=== PATIENT | female | born 1960 | race Caucasian/White ===

== ENCOUNTER 2022-11-10 16:34 | Emergency (ER) | payer BC, SELFPAY ==
[2022-11-10 16:37] VITALS: BP 175/68; PULSE 82; RESP 18; TEMP 36.3; O2SAT 97; BMI 31.9
--- NOTE | 2022-11-10 16:54 | CRLHL7_ITS ---
For Patients: As a result of the Cures Act, medical imaging exams and procedure reports are released immediately into your electronic medical record. You may view this report before your referring provider. If you have questions, please contact your health care provider. INDICATION: Right calf pain and swelling. TECHNIQUE: Ultrasound venous duplex lower right extremity. Compression venous exam was performed using mcgowan-scale, color Doppler, and spectral Doppler imaging. COMPARISON: No prior. FINDINGS: Sonographic imaging demonstrates the right common femoral, deep femoral, superficial femoral, popliteal, posterior tibial and greater saphenous and the contralateral left common femoral veins to be fully compressible with normal color Doppler blood flow. IMPRESSION: No DVT within the right lower extremity. Dictated by Zac Monzon MD @ 11/10/2022 6:39:35 PM Dictated by: Zac Monzon MD @ 11/10/2022 18:39:41 (Electronically Signed)
[2022-11-10 17:10] LABS: Basophils Absolute Auto 0.03 K/uL (0.00-0.30); Basophils Percent Auto 0.5 % (0.0-3.0); Eosinophils Absolute Auto 0.21 K/uL (0.00-0.50); Eosinophils Percent Auto 3.7 % (0.0-7.0); Hematocrit 40.8 % (33.0-51.0); Hemoglobin* 12.7 gm/dL (12.0-16.0); Lymphocytes Percent Auto 33.6 % (20-44); Mean Corpuscular HGB Conc 31 gm/dL (32-36); Mean Corpuscular Hemoglobin 29 pg (26-34); Mean Corpuscular Volume 92 fL (80-100); Monocytes Percent Auto 7.6 % (0.0-11.0); Neutrophils Absolute Auto 3.09 K/uL (1.7-7.0); Neutrophils Percent Auto 54.6 % (42.0-72.0); Platelet Count* 232 K/uL (140-440); RDW Coefficient of Variation % 17.1 % (11.5-15.5); Red Blood Count 4.46 m/uL (4.00-5.20); White Blood Count* 5.66 K/uL (4.50-11.00)
[2022-11-10 17:13] LABS: Slide Review Reflex No
[2022-11-10 17:26] LABS: Albumin* 4.2 g/dL (3.3-5.0)
[2022-11-10 17:27] LABS: Chloride* 108 mmol/L (96-114); Potassium* 4.6 mmol/L (3.6-5.1); Sodium* 143 mmol/L (135-149)
[2022-11-10 17:29] LABS: Alanine Aminotransferase* 19 U/L (4-35); Alkaline Phosphatase* 108 U/L (40-150); Aspartate Amino Transferase* 23 U/L (12-35); Bilirubin Total* 0.4 mg/dL (0.1-1.5); Creatinine* 0.7 mg/dL (0.5-1.5); D Dimer Quantitative* 0.34 ug/ml (0.00-0.50); Estimated Glomerular Filt Rate 98 ml/min; Total Protein* 7.5 g/dL (6.0-8.3)
[2022-11-10 17:30] LABS: Anion Gap 5 mEq/L (7-15); Blood Urea Nitrogen* 18 mg/dL (7-30); Calcium* 9.9 mg/dL (8.4-10.6); Carbon Dioxide* 30 mmol/L (20-32); Glucose* 91 mg/dL (60-115)
[2022-11-10 17:32] LABS: C Reactive Protein* 0.8 mg/dL (0.5-1.0)
--- NOTE | 2022-11-10 18:11 | CRLHL7_ITS ---
For Patients: As a result of the Cures Act, medical imaging exams and procedure reports are released immediately into your electronic medical record. You may view this report before your referring provider. If you have questions, please contact your health care provider. INDICATION: Right lower extremity edema.. TECHNIQUE: CT abdomen and pelvis acquired with 99 cc Isovue 370 IV contrast. COMPARISON: None. FINDINGS: Lower chest: Unremarkable. Liver: Unremarkable. Normal in size and attenuation. No suspicious masses. Gallbladder and bile ducts: Status post cholecystectomy. Mild intra and extrahepatic biliary ductal dilatation likely reservoir effect. Pancreas: Unremarkable. No mass or inflammation. Spleen: Unremarkable. Normal in size. No masses. Adrenal glands: Indeterminate enhancing nodular lesion in the left adrenal gland measuring 15 millimeters in diameter (). Kidneys: Unremarkable. No suspicious masses, stones, or hydronephrosis. GI tract: No bowel obstruction. Status post gastric bypass. Appendix is not visualized. Vasculature: Abdominal aorta is normal in caliber. Mesenteric arteries are patent. No evidence to suggest DVT. Lymph nodes: No lymphadenopathy. Peritoneum/Abdominal Wall: Unremarkable. No sign of mass or infiltration. No free air or significant free fluid. Pelvis: Unremarkable. Bones: Lumbar fusion changes are noted. No evidence of hardware fracture or loosening. Multilevel degenerative changes in the lumbar spine. IMPRESSION: No acute intra-abdominal process identified. Please note that all CT scans at this facility use dose modulation, iterative reconstruction, and/or weight-based dosing when appropriate to reduce radiation dose to as low as reasonably achievable. Dictated by Giovanna Holder MD @ 11/10/2022 7:34:47 PM (Electronically Signed)
--- NOTE | 2022-11-10 19:00 | ED.GENADULT ---
HPI - General Adult General Chief complaint: Extremity Pain/Injury, Lower Stated complaint: Possible blood clot Time Seen by Provider: 11/10/22 16:47 Source: patient Mode of arrival: ambulatory Limitations: no limitations History of Present Illness HPI narrative: 62-year-old female coming in today complaining of right lower extremity swelling. States feels like that for about 2 weeks. She denies tenderness. She denies any systemic symptoms like fevers, chills, nausea or vomiting. No changes in her appetite. She denies any weight changes or her clothes fitting differently. No changes in her sleep. She denies any night sweats. She denies any recent traveling or changes in her medications. She does smoke. She denies any hormonal therapy. She denies any family history of blood clots or any personal history of blood clots. Related Data Home Medications Medication Instructions Recorded Confirmed amlodipine 10 mg tablet 10 mg PO DAILY 11/10/22 11/10/22 atorvastatin 40 mg tablet 40 mg PO QPM 11/10/22 11/10/22 cyanocobalamin (vitamin B-12) 1,000 mcg PO DAILY 11/10/22 11/10/22 1,000 mcg tablet ergocalciferol (vitamin D2) 1,250 1,250 mcg PO 2XW 11/10/22 11/10/22 mcg (50,000 unit) capsule gabapentin 300 mg capsule 300 mg PO BID 11/10/22 11/10/22 levothyroxine 200 mcg tablet 200 mcg PO QAM 11/10/22 11/10/22 paroxetine HCl 40 mg tablet 40 mg PO DAILY 11/10/22 11/10/22 Allergies Allergy/AdvReac Type Severity Reaction Status Date / Time varenicline [From Chantix] Allergy Verified 11/10/22 18:37 Review of Systems Status of ROS: Reports: 10 or more systems reviewed and unremarkable except as noted in History and below [facility] PFS Social History Smoking Status: Unknown if ever smoked Do you use any of these nicotine containing products: None Second hand tobacco smoke exposure: No How often do you have a drink containing alcohol: never How often do you have six or more drinks on one occasion: Never AUDIT-C Alcohol total score: 0 Non-prescribed substance use: denies use service: No Exam Narrative: Exam Narrative: Well-nourished well-developed patient in no acute distress. Alert and oriented. Answers questions appropriately. Mood and affect are appropriate. Thoughts are goal oriented and rational. No tangential or magical thinking noted. Patient speaks in full sentences without needing to catch her breath. HEENT: Normocephalic atraumatic. Pupils are equally round reactive to light. Extraocular muscles are intact. Conjunctivae are moist without any icterus noted. Moist mucous membranes. Cardiovascular: Heart is regular rate and rhythm. Lungs: Clear to auscultation bilaterally no wheezes rhonchi or rales are appreciated. Patient takes deep breaths without any discomfort. Abdomen: Soft and nontender nondistended with normal bowel sounds. Extremities: Left lower extremity appears normal. Right lower extremity is 2+ pitting edema from the foot all the way up to the mid hughes. Skin is firm and tight. Skin: Well perfused without any obvious rashes. Const: Vital Signs, click to edit/add: Vital Signs - 24 hr 11/10/22 16:37 Temperature 97.4 F L Pulse Rate [Right Pulse Oximeter] 82 Respiratory Rate 18 Blood Pressure [Ri ght Upper Arm] 175/68 H Pulse Oximetry 97 Oxygen Delivery Me thod Room Air Course Course ED Course: Lab work was unremarkable. Lower extremity ultrasound did not show any evidence of DVT. Given the amount of swelling she is having that leg I did proceed with an abdomen and pelvis CT to rule out any masses or obstructing lesions-this was unremarkable also. Vital Signs Vital signs: Initial Vital Signs Temperature 97.4 F L 11/10/22 16:37 Temperature Source Temporal Artery Scan 11/10/22 16:37 Pulse Rate 82 11/10/22 16:37 Respiratory Rate 18 11/10/22 16:37 Blood Pressure 175/68 H 11/10/22 16:37 Blood Pressure Mean 103 11/10/22 16:37 Blood Pressure Position Sitting 11/10/22 16:37 Pulse Oximetry 97 11/10/22 16:37 Oxygen Delivery Method Room Air 11/10/22 16:37 Vital Signs Temperature 97.4 F L 11/10/22 16:37 Pulse Rate 82 11/10/22 16:37 Respiratory Rate 18 11/10/22 16:37 Blood Pressure 175/68 H 11/10/22 16:37 Pulse Oximetry 97 11/10/22 16:37 Oxygen Delivery Method Room Air 11/10/22 16:37 Temperature 97.4 F L 11/10/22 16:37 Pulse Rate 82 11/10/22 16:37 Respiratory Rate 18 11/10/22 16:37 Blood Pressure 175/68 H 11/10/22 16:37 Pulse Oximetry 97 11/10/22 16:37 Oxygen Delivery Method Room Air 11/10/22 16:37 Medical Decision Making MDM Narrative Medical decision making narrative: 62-year-old female with unilateral lower extremity swelling who unclear etiology. At this time we discussed compression stocking elevating legs much possible. I recommend she follow up with primary care provider to discuss next steps in treatment. Patient was in agreement and had no other questions. Lab Data Lab results reviewed: Yes I reviewed the patient's lab results Labs: Lab Results 11/10/22 Range/Units 17:02 WBC 5.66 (4.50-11.00) K/uL RBC 4.46 (4.00-5.20) m/uL Hgb 12.7 (12.0-16.0) gm/dL Hct 40.8 (33.0-51.0) % MCV 92 (80-100) fL MCH 29 (26-34) pg MCHC 31 L (32-36) gm/dL RDW Coeff of Rose Mary 17.1 H (11.5-15.5) % Plt Count 232 (140-440) K/uL Neut % (Auto) 54.6 (42.0-72.0) % Lymph % (Auto) 33.6 (20-44) % Gentry % (Auto) 7.6 (0.0-11.0) % Eos % (Auto) 3.7 (0.0-7.0) % Baso % (Auto) 0.5 (0.0-3.0) % Neut # (Auto) 3.09 (1.7-7.0) K/uL Lymph # (Auto) 1.90 (0.90-2.90) K/uL Gentry # (Auto) 0.40 (0.00-0.90) K/UL Eos # (Auto) 0.21 (0.00-0.50) K/uL Baso # (Auto) 0.03 (0.00-0.30) K/uL Abs Immat Gran (auto) 0.00 (0.00-0.30) K/uL Imm/Tot Granulo (auto) 0.0 % D-Dimer Quant (PE/DVT) 0.34 (0.00-0.50) ug/ml Sodium 143 (135-149) mmol/L Potassium 4.6 (3.6-5.1) mmol/L Chloride 108 (96-114) mmol/L Carbon Dioxide 30 (20-32) mmol/L Anion Gap 5 L (7-15) mEq/L BUN 18 (7-30) mg/dL Creatinine 0.7 (0.5-1.5) mg/dL Estimated Creat Clear 59.60 Estimated GFR 98 ml/min Glucose 91 (60-115) mg/dL Calcium 9.9 (8.4-10.6) mg/dL Total Bilirubin 0.4 (0.1-1.5) mg/dL Direct Bilirubin 0.0 (0.0-0.5) mg/dL AST 23 (12-35) U/L ALT 19 (4-35) U/L Alkaline Phosphatase 108 (40-150) U/L C-Reactive Protein 0.8 (0.5-1.0) mg/dL Total Protein 7.5 (6.0-8.3) g/dL Albumin 4.2 (3.3-5.0) g/dL Imaging Data Venous US: Attestation: I have reviewed the pertinent imaging results. Radiologist's impression: [place] [id number] Diagnostic Imaging Report Patient: Shelley Carpenter MR#: [id number] : 1960 Acct:[id number] Loc: ED Service Date: 11/10/[address]: Ordering Physician: Corie Taylor M.D. Date of Service: 11/10/22 Procedure(s): US venous LE RT Accession Number(s): [id number] cc: Charline Jones M.D.; Corie Taylor M.D.~ For Patients: As a result of the Cures Act, medical imaging exams and procedure reports are released immediately into your electronic medical record. You may view this report before your referring provider. If you have questions, please contact your health care provider. INDICATION: Right calf pain and swelling. TECHNIQUE: Ultrasound venous duplex lower right extremity. Compression venous exam was performed using mcgowan-scale, color Doppler, and spectral Doppler imaging. COMPARISON: No prior. FINDINGS: Sonographic imaging demonstrates the right common femoral, deep femoral, superficial femoral, popliteal, posterior tibial and greater saphenous and the contralateral left common femoral veins to be fully compressible with normal color Doppler blood flow. IMPRESSION: No DVT within the right lower extremity. CT scan - abdomen: Attestation: I have reviewed the pertinent imaging results. Radiologist's impression: CT abdomen and pelvis acquired with 99 cc Isovue 370 IV contrast. COMPARISON: None. FINDINGS: Lower chest: Unremarkable. Liver: Unremarkable. Normal in size and attenuation. No suspicious masses. Gallbladder and bile ducts: Status post cholecystectomy. Mild intra and extrahepatic biliary ductal dilatation likely reservoir effect. Pancreas: Unremarkable. No mass or inflammation. Spleen: Unremarkable. Normal in size. No masses. Adrenal glands: Indeterminate enhancing nodular lesion in the left adrenal gland measuring 15 millimeters in diameter (). Kidneys: Unremarkable. No suspicious masses, stones, or hydronephrosis. GI tract: No bowel obstruction. Status post gastric bypass. Appendix is not visualized. Vasculature: Abdominal aorta is normal in caliber. Mesenteric arteries are patent. No evidence to suggest DVT. Lymph nodes: No lymphadenopathy. Peritoneum/Abdominal Wall: Unremarkable. No sign of mass or infiltration. No free air or significant free fluid. Pelvis: Unremarkable. Bones: Lumbar fusion changes are noted. No evidence of hardware fracture or loosening. Multilevel degenerative changes in the lumbar spine. IMPRESSION: No acute intra-abdominal process identified. Discharge Plan Discharge Clinical Impression: Unilateral edema of lower extremity Patient Disposition: Home, Self-Care Condition: Stable Additional Instructions: Workup today included an abdominal and pelvis CT scan to rule out any obstructing masses-this was unremarkable. Ultrasound of the lower extremity was also done which did not show any blood clots. At this time I recommend you wear compression stocking at all times, and elevate your leg as much as possible. You should follow-up with your primary care provider to discuss next steps in treatment. You may want to consider stopping your amlodipine, after you consult with your primary care provider, as amlodipine can sometimes cause lower extremity swelling. Prescriptions: No Action atorvastatin 40 mg tablet 40 mg PO QPM cyanocobalamin (vitamin B-12) 1,000 mcg tablet 1,000 mcg PO DAILY amlodipine 10 mg tablet 10 mg PO DAILY gabapentin 300 mg capsule 300 mg PO BID levothyroxine 200 mcg tablet 200 mcg PO QAM ergocalciferol (vitamin D2) 1,250 mcg (50,000 unit) capsule 1,250 mcg PO 2XW paroxetine HCl 40 mg tablet 40 mg PO DAILY Follow Up/Referrals: Charline Jones MD [Primary Care Provider] - Stand Alone Forms: [employer] Info Instructions
== END 2022-11-10 20:05 | disposition home or self-care (01) ==
PROVIDERS: Emergency Provider Family Medicine; PCP Family Medicine
DX: R60.0 Localized edema (principal)
CPT/HCPCS: 36415; 74177; 80048; 80076; 85025; 85379; 86140; 93971; 99284; Q9967